=== PATIENT | male | born 1965 | race Caucasian/White ===

== ENCOUNTER 2019-07-03 08:51 | Emergency (ER) | payer BC, OTHER | END 2019-07-03 09:23 | disposition home or self-care (01) | LOC: NAV ERS 08:51 | DX: T82.837A Hemorrhage due to cardiac prosthetic devices, implants and grafts, initial encounter (principal); I10 Essential (primary) hypertension; E11.9 Type 2 diabetes mellitus without complications; F17.210 Nicotine dependence, cigarettes, uncomplicated | CPT/HCPCS: 99283 ==

== ENCOUNTER 2019-09-08 04:49 | Emergency (ER) | payer BC, OTHER ==
[2019-09-08] MEDS ORDERED: Sulfameth/Trimethoprim DS 800-160mg TAB ONE (05:21)
== END 2019-09-08 05:25 | disposition home or self-care (01) ==
LOC: NAV ERS 04:49
DX: H00.013 Hordeolum externum right eye, unspecified eyelid (principal); I11.0 Hypertensive heart disease with heart failure; I50.9 Heart failure, unspecified; E11.9 Type 2 diabetes mellitus without complications; Z87.891 Personal history of nicotine dependence; Z79.4 Long term (current) use of insulin; Z79.899 Other long term (current) drug therapy
CPT/HCPCS: 99282

== ENCOUNTER 2024-11-16 10:49 | Emergency (ER) | payer BC, OTHER | END 2024-11-16 11:25 | disposition home or self-care (01) | LOC: NAV ERS 10:49 | DX: Z00.00 Encounter for general adult medical examination without abnormal findings (principal); I11.0 Hypertensive heart disease with heart failure; I50.9 Heart failure, unspecified; E11.9 Type 2 diabetes mellitus without complications; Z79.4 Long term (current) use of insulin; Z87.891 Personal history of nicotine dependence | CPT/HCPCS: 36416; 99282 ==